=== PATIENT | female | born 1995 | race Two or more races ===

== ENCOUNTER 2023-10-17 01:07 | Emergency (ER) | payer SELFPAY ==
[~2023-10-17] VITALS: Ht 160 cm; Wt 92.5 kg
[2023-10-17 01:48] VITALS: BP 128/77; PULSE 98; RESP 16; TEMP 97.7; O2SAT 99
[2023-10-17] MEDS ORDERED: CEPH500T PO (02:05)
[2023-10-17] MEDS ORDERED: IBUP1TAB5 PO (02:05)
[2023-10-17] MEDS ORDERED: MUPI2OIN2 EX (02:05)
[2023-10-17] MEDS: TETANUS-DIPTH-ACEL PERTUSSIS 0.5ML SYR Tdap IM ONE (02:09)
[2023-10-17] MEDS: NEOMYCIN-BACITRACIN-POLYM UNITDOSE PKG TOP OINT TOP ONE (02:09)
[2023-10-17] MEDS: IBUPROFEN 600 MG TAB PO ONE (02:10)
[2023-10-17] MEDS: CEPHALEXIN 250 MG CAP PO ONE (02:10)
== END 2023-10-17 02:20 | disposition home or self-care (01) ==
LOC: ER 01:07
DX: S61.001A Unspecified open wound of right thumb without damage to nail, initial encounter (principal); S61.401A Unspecified open wound of right hand, initial encounter; W22.8XXA Striking against or struck by other objects, initial encounter; Y93.89 Activity, other specified; Y92.39 Other specified sports and athletic area as the place of occurrence of the external cause; Y99.8 Other external cause status
CPT/HCPCS: 90471; 90715